=== PATIENT | female | born 1940 | race Caucasian/White ===

== ENCOUNTER 2019-10-10 11:11 | Emergency (ER) | payer MEDICARE, MEDICAID ==
[~2019-10-10] VITALS: Ht 167.6 cm; Wt 98.0 kg
[~2019-10-10 11:11] MED LIST: GABA300C PO; HYDR-3282 MT; PIOG30TA10 PO; SERT100T MT; SEVE800T8 MT; SIMV20TA2 PO; TRAZ-251 PO
[2019-10-10] MEDS ORDERED: HYDROCODONE/ACETAMINOPHEN 10/325MG TABLET PO ONE (15:45)
[2019-10-10 17:44] VITALS: BP 124/82
[2019-10-10 17:54] LABS: CHLORIDE 103 mEq/L (98-107)
[2019-10-10] MEDS ORDERED: PREDNISONE 20MG TABLET PO ONE (18:15)
[2019-10-10] MEDS ORDERED: KETOROLAC 30MG/ML VIAL IM ONE (18:15)
[2019-10-10] MEDS ORDERED: KETOROLAC 15MG/ML VIAL IV ONE (18:15)
== END 2019-10-10 19:28 | disposition home or self-care (01) ==
LOC: ER 11:11
DX: M19.022 Primary osteoarthritis, left elbow (principal); M17.12 Unilateral primary osteoarthritis, left knee; M79.652 Pain in left thigh; I10 Essential (primary) hypertension
CPT/HCPCS: 36415; 71045; 73070; 73552; 80053; 93005; 96372; 99284; J1885; J7512

== ENCOUNTER 2020-02-27 10:46 | Inpatient (IN) | payer MEDICARE, MEDICAID ==
[~2020-02-27] VITALS: Ht 167.6 cm; Wt 99.8 kg
[2020-02-27] MEDS ORDERED: VANCOMYCIN 1 G PREMIX 200 ML IV ONE (11:30)
[2020-02-27 11:53] LABS: BG BASE EXCESS -3.9 mmol/L (-2.0-2.0); BG CARBOXYHEMOGLOBIN 0.3 % (0.5-1.5); BG DEOXYHEMOGLOBIN 1.6 % (0.0-5.0); BG FRACTION INSPIRED OXYGEN 36; BG HCO3 ACT 21.8 mmol/L (22.0-26.0); BG METHEMOGLOBIN 0.4 % (0.0-1.5); BG OXYGEN SATURATION 98.4 % (92.0-98.5); BG OXYHEMOGLOBIN 97.7 % (94.0-97.0); BG PCO2 42.6 mmHg (35.0-45.0); BG PH 7.327 (7.350-7.450); BG PO2 196.6 mmHg (75.0-100.0); BG SAMPLE SITE RIGHT BRACHIAL; BG TOTAL HEMOGLOBIN 8.4 g/dL (12.0-18.0); BG VENT MODE NASAL CANNULA
[2020-02-27 12:03] LABS: BASOPHILS % 0.6 % (0.0-2.0); EOSINOPHILS % 2.3 % (0.0-5.0); HEMATOCRIT. 36.7 % (36.0-48.0); HEMOGLOBIN. 12.3 g/dL (12.0-16.0); MEAN CORPUSCULAR HEMOGLOBIN 31.7 pg (28.0-32.0); MEAN CORPUSCULAR VOLUME 95.2 fL (81.0-99.0); MEAN PLATELET VOLUME 7.7 fl (7.4-10.4); MONOCYTES % 8.7 % (2.0-8.0); NEUTROPHILS % 66.4 % (40.0-76.0); PLATELET 207 x1000/uL (130-400); RED BLOOD CELL COUNT 3.86 mill/uL (4.2-5.4); RED CELL DISTRIBUTION WIDTH 14.9 % (11.6-14.6)
[2020-02-27 12:08] LABS: D-DIMER 1.59 mg/L FEU (<0.50); INR 0.9; PROTHROMBIN TIME 10.3 sec (9.6-11.0)
[2020-02-27 12:10] LABS: CHLORIDE 102 mEq/L (98-107)
[2020-02-27 12:26] LABS: CLARITY URINE CLOUDY (CLEAR); COLOR URINE DARK YELLOW (YELLOW); KETONES URINE TRACE (NEGATIVE); LEUKOCYTE ESTERASE URINE 3+ (NEGATIVE); NITRITE URINE NEGATIVE (NEGATIVE); OCCULT BLOOD URINE 1+ (NEGATIVE); PH URINE 5.5 (4.5-8.0); PROTEIN URINE 2+ (NEGATIVE); SPECIFIC GRAVITY URINE 1.022 (1.005-1.030)
[2020-02-27] MEDS ORDERED: FUROSEMIDE 20MG/2ML VIAL IVP ONE (12:45)
[2020-02-27] MEDS ORDERED: ENOXAPARIN 40MG/0.4ML SYR SUBCUT SCH (15:15)
[2020-02-27] MEDS ORDERED: HYDROCODONE/ACETAMINOPHEN 5/325MG TABLET PO PRN (15:15)
[2020-02-27] MEDS ORDERED: IPRATROPIUM/ALBUTEROL 0.5-3(2.5)MG/3ML NEB HHN PRN (15:15)
[2020-02-27] MEDS ORDERED: LEVOFLOXACIN 250MG PREMIX 50 ML IV NR (15:15)
[2020-02-27] MEDS ORDERED: ACETAMINOPHEN 325MG TABLET PO PRN (15:15)
[2020-02-27] MEDS ORDERED: VANCOMYCIN 1 G PREMIX 200 ML IV SCH (15:15)
[2020-02-27] MEDS ORDERED: VANCOMYCIN 500 MG PREMIX 100 ML IV SCH (17:00)
[2020-02-27] MEDS: LORAZEPAM 2MG/ML CPJ IV PRN (18:25)
[2020-02-27 23:00] VITALS: BP 140/68
[2020-02-27] MEDS: ENOXAPARIN 30MG/0.3ML SYR SUBCUT SCH (23:08)
[2020-02-28] VITALS: BP_SYST 119; BP_SYST 140; BP_DIAS 68; BP_DIAS 70
[2020-02-28] MEDS: LORAZEPAM 2MG/ML CPJ IV PRN (00:42)
[2020-02-28] MEDS ORDERED: DEXTROSE 50% WATER 50ML SYRINGE IV PRN ×2 (01:00)
[2020-02-28 04:00] VITALS: BP 163/70
[2020-02-28] MEDS: BLOOD SUGAR DIAGNOSTIC STRIP TEST SCH ×4 (05:46→21:51)
[2020-02-28] MEDS: INSULIN LISPRO 100 UNITS/ML SUBCUT SCH ×4 (05:46→21:00)
[2020-02-28 07:45] LABS: CHLORIDE 102 mEq/L (98-107)
[2020-02-28 07:56] LABS: LDL CHOLESTEROL 63 mg/dL (5-100)
[2020-02-28 07:57] LABS: HDL CHOLESTEROL 52 mg/dL (40-59); T4 FREE 0.86 ng/dL (0.76-1.46)
[2020-02-28 08:00] VITALS: BP 149/83
[2020-02-28] MEDS: ENOXAPARIN 30MG/0.3ML SYR SUBCUT SCH ×2 (09:00→21:50)
[2020-02-28 10:19] LABS: BASOPHILS % 0.2 % (0.0-2.0); EOSINOPHILS % 1.8 % (0.0-5.0); HEMOGLOBIN. 12.5 g/dL (12.0-16.0); LYMPHOCYTES % 14.8 % (20.0-50.0); MEAN CORPUSCULAR HEMOGLOBIN 31.6 pg (28.0-32.0); MEAN CORPUSCULAR VOLUME 95.7 fL (81.0-99.0); MEAN PLATELET VOLUME 7.5 fl (7.4-10.4); MONOCYTES % 7.2 % (2.0-8.0); PLATELET 184 x1000/uL (130-400); RED BLOOD CELL COUNT 3.97 mill/uL (4.2-5.4); RED CELL DISTRIBUTION WIDTH 14.3 % (11.6-14.6)
[2020-02-28] MEDS ORDERED: MEDICATION NOT ON FORMULARY EA (Hydrocodone Bit/Acetaminophen (Hydrocodon-Acetaminoph 7. MT PRN (14:15)
[2020-02-28] MEDS: VANCOMYCIN 1 G PREMIX 200 ML IV SCH (14:58)
[2020-02-28] MEDS: GABAPENTIN 300MG CAPSULE PO SCH ×2 (14:58→21:50)
[2020-02-28] MEDS ORDERED: LEVOFLOXACIN 500MG PREMIX 100 ML IV SCH (16:00)
[2020-02-28 20:00] VITALS: BP 167/76
[2020-02-28] MEDS ORDERED: ATORVASTATIN CALCIUM 10MG TABLET PO SCH (21:00)
[2020-02-28] MEDS ORDERED: TRAZODONE HCL 50MG TABLET PO SCH (21:00)
[2020-02-29] VITALS: BP 141/62
[2020-02-29 04:00] VITALS: BP 134/61
[2020-02-29] MEDS: BLOOD SUGAR DIAGNOSTIC STRIP TEST SCH ×2 (06:34→12:05)
[2020-02-29] MEDS: INSULIN LISPRO 100 UNITS/ML SUBCUT SCH ×2 (06:34→12:05)
[2020-02-29] MEDS: VANCOMYCIN 1 G PREMIX 200 ML IV SCH (06:38)
[2020-02-29] MEDS: GABAPENTIN 300MG CAPSULE PO SCH (06:39)
[2020-02-29] MEDS ORDERED: PIOGLITAZONE 15MG TABLET PO SCH (06:45)
[2020-02-29] MEDS ORDERED: SEVELAMER CARBONATE 800 MG TABLET PO SCH (09:00)
[2020-02-29] MEDS ORDERED: SERTRALINE HCL 50MG TABLET PO SCH (09:00)
[2020-02-29] MEDS: ENOXAPARIN 30MG/0.3ML SYR SUBCUT SCH (09:05)
[2020-02-29 12:00] VITALS: BP 133/56
[2020-02-29] MEDS ORDERED: DOXY100C2 MT (14:00)
[2020-02-29 14:47] VITALS: BP 138/88
[2020-02-29] MEDS ORDERED: LEVOFLOXACIN 500MG TABLET PO SCH (16:00)
== END 2020-02-29 15:30 | disposition home health service (06) | DRG 602 ==
LOC: ER 10:46 → EDBEDREQ 12:48 → EDBEDREQTM 12:48 → EDBEDREQSVC 12:53 → ENRESERV 21:31 → 5WST 22:08
PROVIDERS: ADMIT Internal Medicine; ATTEND Internal Medicine
DX: L03.115 Cellulitis of right lower limb (principal); J18.9 Pneumonia, unspecified organism; I13.0 Hypertensive heart and chronic kidney disease with heart failure and stage 1 through stage 4 chronic kidney disease, or unspecified chronic kidney disease; E44.0 Moderate protein-calorie malnutrition; N39.0 Urinary tract infection, site not specified; L03.116 Cellulitis of left lower limb; E11.22 Type 2 diabetes mellitus with diabetic chronic kidney disease; E66.9 Obesity, unspecified; E78.5 Hyperlipidemia, unspecified; N18.9 Chronic kidney disease, unspecified; Z96.659 Presence of unspecified artificial knee joint; M19.90 Unspecified osteoarthritis, unspecified site; E78.00 Pure hypercholesterolemia, unspecified; F32.9 Major depressive disorder, single episode, unspecified; I50.9 Heart failure, unspecified; Z90.710 Acquired absence of both cervix and uterus; Z88.1 Allergy status to other antibiotic agents; Z88.5 Allergy status to narcotic agent; Z79.891 Long term (current) use of opiate analgesic; Z90.5 Acquired absence of kidney; Z79.899 Other long term (current) drug therapy; Z68.35 Body mass index [BMI] 35.0-35.9, adult
CPT/HCPCS: 36415; 36600; 71045; 78580; 80053; 80061; 81003; 82375; 82805; 82962; 83036; 83605; 83880; 84145; 84439; 84443; 84484; 85025; 85379; 93005; 93306; 93970; 99291; J1650; J1940; J1956; J2060; J3370

== ENCOUNTER 2021-10-03 18:45 | Inpatient (IN) | payer MEDICARE, MEDICAID ==
[~2021-10-03] VITALS: Ht 167.6 cm; Wt 90.3 kg
[~2021-10-03 18:45] MED LIST changes: +DOXY100C5 MT; -HYDR-3282 MT; +HYDR-4348 MT
[2021-10-03 22:04] LABS: HEMATOCRIT. 40.9 % (36.0-48.0); HEMOGLOBIN. 13.3 g/dL (12.0-16.0); MEAN CORPUSCULAR HEMOGLOBIN 31.6 pg (28.0-32.0); MEAN CORPUSCULAR VOLUME 97.3 fL (81.0-99.0); PLATELET 216 x1000/uL (130-400); RED CELL DISTRIBUTION WIDTH 14.6 % (11.6-14.6)
[2021-10-03 22:05] LABS: CLARITY URINE CLOUDY (CLEAR); COLOR URINE DARK YELLOW (YELLOW); KETONES URINE TRACE (NEGATIVE); LEUKOCYTE ESTERASE URINE 1+ (NEGATIVE); NITRITE URINE NEGATIVE (NEGATIVE); OCCULT BLOOD URINE 2+ (NEGATIVE); PROTEIN URINE 2+ (NEGATIVE); SPECIFIC GRAVITY URINE 1.024 (1.005-1.030)
[2021-10-03 22:09] LABS: CHLORIDE 103 mEq/L (98-107)
[2021-10-03] MEDS ORDERED: PIPERACILLIN/TAZOBACTAM 3.375GM/50ML PREMIX IV ONE (22:45)
[2021-10-03] MEDS: HYDROCODONE/ACETAMINOPHEN 5/325MG TABLET PO NR ×2 (22:48→23:02)
[2021-10-03] MEDS ORDERED: PIPERACILLIN/TAZ 3.375G PREMIX 50 ML IV NR (23:00)
[2021-10-03] MEDS ORDERED: KETOROLAC 30MG/ML VIAL IV ONE (23:00)
[2021-10-03 23:28] LABS: PLATELET ESTIMATE NORMAL
[2021-10-03] MEDS ORDERED: CYCLOBENZAPRINE 10MG TABLET PO ONE (23:30)
[2021-10-04] MEDS ORDERED: ACETAMINOPHEN 325MG TABLET PO PRN (10:30)
[2021-10-04] MEDS ORDERED: ONDANSETRON HCL 4MG/2ML INJ IV PRN (10:30)
[2021-10-04 11:55] VITALS: BP 160/77
[2021-10-04] MEDS ORDERED: LEVOFLOXACIN 500MG PREMIX 100 ML IV SCH (12:00)
[2021-10-04 12:59] VITALS: BP 165/95
[2021-10-04 16:01] VITALS: BP 158/79
[2021-10-04] MEDS ORDERED: PNEUMOCOCCAL 23-VAL P-SAC VAC 0.5 ML IM ONE (17:00)
[2021-10-04 18:00] VITALS: BP 157/61
[2021-10-04 20:00] VITALS: BP 158/74
[2021-10-04] MEDS ORDERED: NA PHOS,M-B/NA PHOS,DI-BA ENEMA 118ML PR NR (20:15)
[2021-10-04] MEDS ORDERED: NALOXONE HCL 0.4MG/ML VIAL IV PRN (20:30)
[2021-10-04] MEDS: BUSPIRONE HCL 5MG TABLET PO SCH (21:00)
[2021-10-04] MEDS: HYDROCODONE/ACETAMINOPHEN 5/325MG TABLET PO PRN (22:17)
[2021-10-04] MEDS: ENOXAPARIN 40MG/0.4ML SYR SUBCUT SCH (22:19)
[2021-10-05] VITALS (7 sets, daily range): BP systolic 134–162; BP diastolic 62–76
[2021-10-05 08:13] LABS: BASOPHILS % 0.1 % (0.0-2.0); EOSINOPHILS % 0.1 % (0.0-5.0); HEMOGLOBIN. 12.6 g/dL (12.0-16.0); LYMPHOCYTES % 7.4 % (20.0-50.0); MEAN CORPUSCULAR HEMOGLOBIN 31.3 pg (28.0-32.0); MEAN CORPUSCULAR VOLUME 97.1 fL (81.0-99.0); MEAN PLATELET VOLUME 8.1 fl (7.4-10.4); MONOCYTES % 6.1 % (2.0-8.0); NEUTROPHILS % 86.3 % (40.0-76.0); PLATELET 196 x1000/uL (130-400); RED BLOOD CELL COUNT 4.02 mill/uL (4.2-5.4); RED CELL DISTRIBUTION WIDTH 14.7 % (11.6-14.6)
[2021-10-05] MEDS: BUSPIRONE HCL 5MG TABLET PO SCH ×2 (09:57→20:44)
[2021-10-05] MEDS: HYDROCODONE/ACETAMINOPHEN 5/325MG TABLET PO PRN (09:57)
[2021-10-05] MEDS: LEVOFLOXACIN 250MG PREMIX 50 ML IV SCH (13:01)
[2021-10-05] MEDS ORDERED: AMLO5TAB4 PO (16:08)
[2021-10-05] MEDS: ENOXAPARIN 40MG/0.4ML SYR SUBCUT SCH (20:43)
[2021-10-05] MEDS: HYDROCODONE/ACETAMINOPHEN 10/325MG TABLET PO PRN (20:44)
[2021-10-06] VITALS (7 sets, daily range): BP systolic 123–151; BP diastolic 51–69
[2021-10-06] MEDS: ALPRAZOLAM 0.5 MG TABLET PO PRN ×2 (01:39→18:10)
[2021-10-06] MEDS: BUSPIRONE HCL 5MG TABLET PO SCH ×2 (09:31→20:21)
[2021-10-06] MEDS: LEVOFLOXACIN 250MG PREMIX 50 ML IV SCH (13:39)
[2021-10-06] MEDS ORDERED: LACTULOSE 20G/30ML UDC PO PRN (15:15)
[2021-10-06] MEDS ORDERED: BISACODYL 5MG TABLET PO PRN (15:15)
[2021-10-06] MEDS: DOCUSATE SODIUM 100MG CAPSULE PO SCH (18:10)
[2021-10-06] MEDS: ENOXAPARIN 40MG/0.4ML SYR SUBCUT SCH (20:22)
[2021-10-06] MEDS: HYDROCODONE/ACETAMINOPHEN 10/325MG TABLET PO PRN (21:21)
[2021-10-07] VITALS: BP 131/70
[2021-10-07 04:00] VITALS: BP 125/80
[2021-10-07] MEDS: HYDROCODONE/ACETAMINOPHEN 10/325MG TABLET PO PRN ×2 (07:01→23:24)
[2021-10-07 08:00] VITALS: BP 149/64
[2021-10-07] MEDS: DOCUSATE SODIUM 100MG CAPSULE PO SCH ×2 (09:23→17:25)
[2021-10-07] MEDS: BUSPIRONE HCL 5MG TABLET PO SCH ×2 (09:23→20:39)
[2021-10-07] MEDS: LEVOFLOXACIN 250MG TABLET PO SCH (11:39)
[2021-10-07 12:00] VITALS: BP 147/68
[2021-10-07 16:00] VITALS: BP 127/82
[2021-10-07 16:31] LABS: BASOPHILS % 0.1 % (0.0-2.0); EOSINOPHILS % 0.8 % (0.0-5.0); HEMATOCRIT. 38.4 % (36.0-48.0); HEMOGLOBIN. 12.9 g/dL (12.0-16.0); LYMPHOCYTES % 7.5 % (20.0-50.0); MEAN CORPUSCULAR HEMOGLOBIN 32.5 pg (28.0-32.0); MEAN CORPUSCULAR VOLUME 96.5 fL (81.0-99.0); MEAN PLATELET VOLUME 7.6 fl (7.4-10.4); MONOCYTES % 6.9 % (2.0-8.0); NEUTROPHILS % 84.7 % (40.0-76.0); PLATELET 225 x1000/uL (130-400); RED BLOOD CELL COUNT 3.98 mill/uL (4.2-5.4); RED CELL DISTRIBUTION WIDTH 14.2 % (11.6-14.6)
[2021-10-07 16:39] LABS: CHLORIDE 101 mEq/L (98-107)
[2021-10-07] MEDS: HYDROCODONE/ACETAMINOPHEN 5/325MG TABLET PO PRN (17:25)
[2021-10-07 20:00] VITALS: BP 133/94
[2021-10-07] MEDS ORDERED: NA PHOS,M-B/NA PHOS,DI-BA ENEMA 118ML PR PRN (20:30)
[2021-10-07] MEDS: LACTULOSE 20G/30ML UDC PO SCH (20:39)
[2021-10-07] MEDS: ENOXAPARIN 40MG/0.4ML SYR SUBCUT SCH (20:40)
[2021-10-08] VITALS: BP 110/51
[2021-10-08 04:00] VITALS: BP 130/53
[2021-10-08 08:00] VITALS: BP 163/62
[2021-10-08] MEDS: BUSPIRONE HCL 5MG TABLET PO SCH ×2 (08:37→20:14)
[2021-10-08] MEDS: DOCUSATE SODIUM 100MG CAPSULE PO SCH ×2 (08:37→17:27)
[2021-10-08] MEDS: LEVOFLOXACIN 250MG TABLET PO SCH (10:54)
[2021-10-08 12:00] VITALS: BP 137/57
[2021-10-08 16:00] VITALS: BP 138/61
[2021-10-08 20:00] VITALS: BP 154/73
[2021-10-08] MEDS: ENOXAPARIN 30MG/0.3ML SYR SUBCUT SCH (20:14)
[2021-10-08] MEDS: HYDROCODONE/ACETAMINOPHEN 5/325MG TABLET PO PRN (20:15)
[2021-10-08] MEDS: LACTULOSE 20G/30ML UDC PO SCH (20:18)
[2021-10-09] VITALS (7 sets, daily range): BP systolic 122–147; BP diastolic 54–72
[2021-10-09] MEDS: HYDROCODONE/ACETAMINOPHEN 5/325MG TABLET PO PRN (02:53)
[2021-10-09] MEDS: SODIUM CHLORIDE 0.45% 1,000 ML IV SCH (06:25)
[2021-10-09] MEDS: DOCUSATE SODIUM 100MG CAPSULE PO SCH ×2 (09:36→17:00)
[2021-10-09] MEDS: BUSPIRONE HCL 5MG TABLET PO SCH ×2 (09:37→20:52)
[2021-10-09 14:04] LABS: HEMATOCRIT. 39.2 % (36.0-48.0); HEMOGLOBIN. 12.5 g/dL (12.0-16.0); MEAN CORPUSCULAR HEMOGLOBIN 30.7 pg (28.0-32.0); MEAN CORPUSCULAR VOLUME 96.2 fL (81.0-99.0); MEAN PLATELET VOLUME 7.7 fl (7.4-10.4); PLATELET 254 x1000/uL (130-400); RED BLOOD CELL COUNT 4.07 mill/uL (4.2-5.4); RED CELL DISTRIBUTION WIDTH 14.4 % (11.6-14.6)
[2021-10-09 14:18] LABS: CHLORIDE 100 mEq/L (98-107)
[2021-10-09 14:28] LABS: CREATINE KINASE 56 IU/L (26-192)
[2021-10-09 14:30] LABS: CREATINE KINASE MB FRACTION 4.5 ng/mL (0.5-3.6)
[2021-10-09] MEDS: HYDROCODONE/ACETAMINOPHEN 10/325MG TABLET PO PRN ×2 (16:18→23:14)
[2021-10-09 16:41] LABS: PLATELET ESTIMATE NORMAL
[2021-10-09 17:05] LABS: BG BASE EXCESS -5.5 mmol/L (-2.0-2.0); BG CARBOXYHEMOGLOBIN 1.3 % (0.5-1.5); BG DEOXYHEMOGLOBIN 2.5 % (0.0-5.0); BG FRACTION INSPIRED OXYGEN 24; BG HCO3 ACT 20.3 mmol/L (22.0-26.0); BG METHEMOGLOBIN 0.3 % (0.0-1.5); BG OXYGEN SATURATION 97.5 % (92.0-98.5); BG OXYHEMOGLOBIN 95.9 % (94.0-97.0); BG PCO2 40.9 mmHg (35.0-45.0); BG PH 7.314 (7.350-7.450); BG PO2 104.9 mmHg (75.0-100.0); BG SAMPLE SITE RIGHT RADIAL; BG TOTAL HEMOGLOBIN 13.2 g/dL (12.0-18.0); BG VENT MODE NASAL CANNULA
[2021-10-09] MEDS: PIPERACILLIN/TAZOBACTAM 3.375 G in DEXTROSE 5% WATER 50 ML IV SCH ×2 (17:18→20:52)
[2021-10-09 17:52] LABS: T4 FREE 0.83 ng/dL (0.76-1.46)
[2021-10-09] MEDS: FAMOTIDINE 20MG TABLET PO SCH (20:52)
[2021-10-09] MEDS: ENOXAPARIN 30MG/0.3ML SYR SUBCUT SCH (20:53)
[2021-10-09] MEDS: LACTULOSE 20G/30ML UDC PO SCH (20:53)
[2021-10-10] VITALS: BP 149/60
[2021-10-10] MEDS: SODIUM CHLORIDE 0.45% 1,000 ML IV SCH ×2 (00:50→12:12)
[2021-10-10] MEDS: LORAZEPAM 2MG/ML CPJ IV PRN (00:50)
[2021-10-10 04:00] VITALS: BP 154/67
[2021-10-10 07:28] LABS: CLARITY URINE TURBID (CLEAR); KETONES URINE TRACE (NEGATIVE); LEUKOCYTE ESTERASE URINE 3+ (NEGATIVE); NITRITE URINE NEGATIVE (NEGATIVE); OCCULT BLOOD URINE 3+ (NEGATIVE); PH URINE 5.5 (4.5-8.0); PROTEIN URINE 2+ (NEGATIVE); SPECIFIC GRAVITY URINE 1.011 (1.005-1.030); UROBILINOGEN URINE 0.2 E.U./dL (0.2-1.0)
[2021-10-10 07:29] LABS: COLOR URINE BLOODY (YELLOW)
[2021-10-10] MEDS: HYDROCODONE/ACETAMINOPHEN 10/325MG TABLET PO PRN ×2 (08:06→23:41)
[2021-10-10 08:20] VITALS: BP 148/59
[2021-10-10] MEDS: DOCUSATE SODIUM 100MG CAPSULE PO SCH ×2 (09:35→17:00)
[2021-10-10] MEDS: PIPERACILLIN/TAZOBACTAM 3.375 G in DEXTROSE 5% WATER 50 ML IV SCH ×2 (09:36→21:11)
[2021-10-10] MEDS ORDERED: LEVOFLOXACIN 250MG TABLET PO SCH (11:00)
[2021-10-10 11:01] LABS: HEMOGLOBIN. 12.8 g/dL (12.0-16.0); MEAN CORPUSCULAR HEMOGLOBIN 30.6 pg (28.0-32.0); MEAN PLATELET VOLUME 7.1 fl (7.4-10.4); PLATELET 245 x1000/uL (130-400); RED BLOOD CELL COUNT 4.16 mill/uL (4.2-5.4); RED CELL DISTRIBUTION WIDTH 14.1 % (11.6-14.6)
[2021-10-10 12:04] VITALS: BP 149/61
[2021-10-10 13:25] LABS: BG BASE EXCESS -3.7 mmol/L (-2.0-2.0); BG CARBOXYHEMOGLOBIN 1.4 % (0.5-1.5); BG FRACTION INSPIRED OXYGEN 28; BG HCO3 ACT 24.7 mmol/L (22.0-26.0); BG METHEMOGLOBIN 0.3 % (0.0-1.5); BG OXYHEMOGLOBIN 96.3 % (94.0-97.0); BG PH 7.226 (7.350-7.450); BG PO2 124.5 mmHg (75.0-100.0); BG SAMPLE SITE RIGHT RADIAL; BG TOTAL HEMOGLOBIN 12.7 g/dL (12.0-18.0); BG VENT MODE NASAL CANNULA
[2021-10-10 14:36] LABS: NUCLEATED RED BLOOD CELLS 1 /100 WBC; PLATELET ESTIMATE NORMAL
[2021-10-10 15:55] LABS: HEMATOCRIT. 42.6 % (36.0-48.0); HEMOGLOBIN. 13.3 g/dL (12.0-16.0); MEAN CORPUSCULAR HEMOGLOBIN 30.3 pg (28.0-32.0); MEAN CORPUSCULAR VOLUME 96.9 fL (81.0-99.0); MEAN PLATELET VOLUME 7.4 fl (7.4-10.4); PLATELET 262 x1000/uL (130-400); RED CELL DISTRIBUTION WIDTH 14.4 % (11.6-14.6)
[2021-10-10 16:00] VITALS: BP 131/71
[2021-10-10 16:20] LABS: CREATINE KINASE 48 IU/L (26-192); CREATINE KINASE MB FRACTION 4.1 ng/mL (0.5-3.6)
[2021-10-10 16:31] LABS: PLATELET ESTIMATE NORMAL
[2021-10-10 16:39] LABS: INR 1.3; PROTHROMBIN TIME 14.1 sec (9.6-11.0)
[2021-10-10 17:27] LABS: BG BASE EXCESS -4.2 mmol/L (-2.0-2.0); BG CARBOXYHEMOGLOBIN 1.4 % (0.5-1.5); BG HCO3 ACT 23.5 mmol/L (22.0-26.0); BG METHEMOGLOBIN 0.3 % (0.0-1.5); BG OXYGEN SATURATION 95.9 % (92.0-98.5); BG OXYHEMOGLOBIN 94.3 % (94.0-97.0); BG PCO2 54.3 mmHg (35.0-45.0); BG PH 7.254 (7.350-7.450); BG PO2 89.3 mmHg (75.0-100.0); BG SAMPLE SITE RIGHT RADIAL; BG TOTAL HEMOGLOBIN 13.2 g/dL (12.0-18.0); BG VENT MODE NASAL CANNULA
[2021-10-10 20:00] VITALS: BP 164/68
[2021-10-10] MEDS: LACTULOSE 20G/30ML UDC PO SCH (21:11)
[2021-10-10] MEDS: ENOXAPARIN 30MG/0.3ML SYR SUBCUT SCH (21:12)
[2021-10-10] MEDS: FAMOTIDINE 20MG TABLET PO SCH (21:12)
[2021-10-11] VITALS: BP 138/56
[2021-10-11] MEDS: SODIUM CHLORIDE 0.45% 1,000 ML IV SCH ×2 (03:07→15:09)
[2021-10-11 04:00] VITALS: BP 125/56
[2021-10-11 08:00] VITALS: BP 147/52
[2021-10-11] MEDS: PIPERACILLIN/TAZOBACTAM 3.375 G in DEXTROSE 5% WATER 50 ML IV SCH ×2 (09:18→21:48)
[2021-10-11] MEDS: DOCUSATE SODIUM 100MG CAPSULE PO SCH ×2 (09:18→16:27)
[2021-10-11 10:06] LABS: BG BASE EXCESS -2.7 mmol/L (-2.0-2.0); BG CARBOXYHEMOGLOBIN 1.2 % (0.5-1.5); BG DEOXYHEMOGLOBIN 1.8 % (0.0-5.0); BG FRACTION INSPIRED OXYGEN 36; BG HCO3 ACT 24.1 mmol/L (22.0-26.0); BG METHEMOGLOBIN 0.3 % (0.0-1.5); BG OXYGEN SATURATION 98.2 % (92.0-98.5); BG OXYHEMOGLOBIN 96.7 % (94.0-97.0); BG PCO2 50.4 mmHg (35.0-45.0); BG PH 7.298 (7.350-7.450); BG PO2 132.2 mmHg (75.0-100.0); BG SAMPLE SITE RIGHT RADIAL; BG VENT MODE NASAL CANNULA
[2021-10-11 10:44] LABS: HEMATOCRIT. 36.2 % (36.0-48.0); HEMOGLOBIN. 11.7 g/dL (12.0-16.0); MEAN CORPUSCULAR VOLUME 95.7 fL (81.0-99.0); MEAN PLATELET VOLUME 7.2 fl (7.4-10.4); PLATELET 261 x1000/uL (130-400); RED BLOOD CELL COUNT 3.78 mill/uL (4.2-5.4); RED CELL DISTRIBUTION WIDTH 14.4 % (11.6-14.6)
[2021-10-11 11:52] LABS: CHLORIDE 109 mEq/L (98-107)
[2021-10-11 12:00] VITALS: BP 111/63
[2021-10-11 13:38] LABS: PLATELET ESTIMATE NORMAL
[2021-10-11 16:00] VITALS: BP 149/96
[2021-10-11 20:00] VITALS: BP 157/66
[2021-10-11] MEDS: FAMOTIDINE 20MG TABLET PO SCH (21:49)
[2021-10-11] MEDS: ENOXAPARIN 30MG/0.3ML SYR SUBCUT SCH (21:49)
[2021-10-11] MEDS: LACTULOSE 20G/30ML UDC PO SCH ×2 (21:49→22:00)
[2021-10-11] MEDS: HYDROCODONE/ACETAMINOPHEN 5/325MG TABLET PO PRN (23:43)
[2021-10-12] VITALS: BP 149/57
[2021-10-12 04:00] VITALS: BP 126/83
[2021-10-12] MEDS: SODIUM CHLORIDE 0.45% 1,000 ML IV SCH ×2 (05:23→16:33)
[2021-10-12 07:18] LABS: HEMATOCRIT. 33.1 % (36.0-48.0); HEMOGLOBIN. 10.6 g/dL (12.0-16.0); MEAN CORPUSCULAR VOLUME 96.8 fL (81.0-99.0); MEAN PLATELET VOLUME 7.3 fl (7.4-10.4); PLATELET 237 x1000/uL (130-400); RED BLOOD CELL COUNT 3.42 mill/uL (4.2-5.4); RED CELL DISTRIBUTION WIDTH 14.2 % (11.6-14.6)
[2021-10-12 08:00] VITALS: BP 153/59
[2021-10-12] MEDS: DOCUSATE SODIUM 100MG CAPSULE PO SCH ×2 (08:38→16:23)
[2021-10-12] MEDS: PIPERACILLIN/TAZOBACTAM 3.375 G in DEXTROSE 5% WATER 50 ML IV SCH ×2 (08:39→20:23)
[2021-10-12 09:01] LABS: PLATELET ESTIMATE NORMAL
[2021-10-12 11:26] LABS: BG BASE EXCESS -0.5 mmol/L (-2.0-2.0); BG CARBOXYHEMOGLOBIN 0.5 % (0.5-1.5); BG DEOXYHEMOGLOBIN 1.4 % (0.0-5.0); BG HCO3 ACT 26.8 mmol/L (22.0-26.0); BG METHEMOGLOBIN 0.3 % (0.0-1.5); BG OXYGEN SATURATION 98.6 % (92.0-98.5); BG OXYHEMOGLOBIN 97.8 % (94.0-97.0); BG PCO2 57.2 mmHg (35.0-45.0); BG PH 7.289 (7.350-7.450); BG PO2 157.9 mmHg (75.0-100.0); BG SAMPLE SITE RIGHT RADIAL; BG TOTAL HEMOGLOBIN 11.2 g/dL (12.0-18.0); BG VENT MODE NASAL CANNULA
[2021-10-12 12:00] VITALS: BP 138/64
[2021-10-12 16:00] VITALS: BP 129/76
[2021-10-12 20:00] VITALS: BP 148/61
[2021-10-12] MEDS: FAMOTIDINE 20MG TABLET PO SCH (20:23)
[2021-10-12] MEDS: ENOXAPARIN 30MG/0.3ML SYR SUBCUT SCH (20:23)
[2021-10-13] VITALS: BP 159/69
[2021-10-13] MEDS: LORAZEPAM 2MG/ML CPJ IV PRN ×2 (00:10→15:37)
[2021-10-13 04:00] VITALS: BP 128/53
[2021-10-13] MEDS: SODIUM CHLORIDE 0.45% 1,000 ML IV SCH ×2 (05:56→21:27)
[2021-10-13 07:49] LABS: HEMOGLOBIN. 11.6 g/dL (12.0-16.0); MEAN CORPUSCULAR HEMOGLOBIN 31.2 pg (28.0-32.0); MEAN CORPUSCULAR VOLUME 96.7 fL (81.0-99.0); MEAN PLATELET VOLUME 7.1 fl (7.4-10.4); PLATELET 240 x1000/uL (130-400); RED BLOOD CELL COUNT 3.73 mill/uL (4.2-5.4); RED CELL DISTRIBUTION WIDTH 14.9 % (11.6-14.6)
[2021-10-13 08:00] VITALS: BP 154/72
[2021-10-13] MEDS: DOCUSATE SODIUM 100MG CAPSULE PO SCH ×2 (08:25→16:34)
[2021-10-13] MEDS: PIPERACILLIN/TAZOBACTAM 3.375 G in DEXTROSE 5% WATER 50 ML IV SCH ×2 (08:25→21:27)
[2021-10-13 10:48] LABS: PLATELET ESTIMATE NORMAL
[2021-10-13 12:00] VITALS: BP_SYST 158; BP_SYST 164; BP_DIAS 79
[2021-10-13 16:00] VITALS: BP 171/71
[2021-10-13] MEDS: CLONIDINE 0.1MG TABLET PO PRN (17:59)
[2021-10-13 20:00] VITALS: BP 156/64
[2021-10-13] MEDS: LACTULOSE 20G/30ML UDC PO SCH (21:26)
[2021-10-13] MEDS: FAMOTIDINE 20MG TABLET PO SCH (21:26)
[2021-10-13] MEDS: ENOXAPARIN 30MG/0.3ML SYR SUBCUT SCH (21:27)
[2021-10-14] VITALS (8 sets, daily range): BP systolic 140–161; BP diastolic 63–93
[2021-10-14] MEDS: HYDROCODONE/ACETAMINOPHEN 5/325MG TABLET PO PRN ×2 (00:21→11:02)
[2021-10-14] MEDS: SODIUM CHLORIDE 0.45% 1,000 ML IV SCH (09:00)
[2021-10-14] MEDS: DOCUSATE SODIUM 100MG CAPSULE PO SCH ×2 (09:00→16:46)
[2021-10-14 11:03] LABS: HEMATOCRIT 33.3 % (36.0-48.0); HEMOGLOBIN 10.4 g/dL (12.0-16.0); MEAN CORPUSCULAR HEMOGLOBIN 30.6 pg (28.0-32.0); MEAN CORPUSCULAR VOLUME 97.9 fL (81.0-99.0); PLATELET 243 x1000/uL (130-400); RED CELL DISTRIBUTION WIDTH 14.1 % (11.6-14.6)
[2021-10-14 11:20] LABS: CHLORIDE 110 mEq/L (98-107)
[2021-10-14] MEDS: HYDROCODONE/ACETAMINOPHEN 10/325MG TABLET PO PRN (14:07)
[2021-10-14] MEDS: CLONIDINE 0.1MG TABLET PO PRN (16:46)
[2021-10-14] MEDS ORDERED: ENOXAPARIN 40MG/0.4ML SYR SUBCUT SCH (18:00)
[2021-10-14] MEDS: FAMOTIDINE 20MG TABLET PO SCH (21:55)
[2021-10-14] MEDS: LACTULOSE 20G/30ML UDC PO SCH (21:55)
[2021-10-15] VITALS: BP 152/59
[2021-10-15 04:00] VITALS: BP 165/62
[2021-10-15 08:00] VITALS: BP 173/64
[2021-10-15] MEDS: DOCUSATE SODIUM 100MG CAPSULE PO SCH (08:58)
[2021-10-15] MEDS: CLONIDINE 0.1MG TABLET PO PRN (09:37)
[2021-10-15 09:38] VITALS: BP 173/64
[2021-10-15] MEDS: HYDROCODONE/ACETAMINOPHEN 10/325MG TABLET PO PRN (09:38)
[2021-10-15] MEDS ORDERED: AMLODIPINE 5MG TABLET PO SCH (21:00)
== END 2021-10-15 14:15 | DRG 871 ==
LOC: ER 18:45 → MICUSO 10-04 01:32 → 5EST 10-04 11:09 → 6EST 10-06 02:43 → 6WST 10-10 08:11 → 7EST 10-10 22:52
PROVIDERS: ADMIT Internal Medicine; ATTEND Internal Medicine
PROC: 5A09357 Assistance with Respiratory Ventilation, Less than 24 Consecutive Hours, Continuous Positive Airway Pressure (ICD-10-PCS; 2021-10-10)
PROC: 02HV33Z Insertion of Infusion Device into Superior Vena Cava, Percutaneous Approach (ICD-10-PCS; principal; 2021-10-11)
PROC: B548ZZA Ultrasonography of Superior Vena Cava, Guidance (ICD-10-PCS; 2021-10-11)
DX: A41.89 Other specified sepsis (principal); E43 Unspecified severe protein-calorie malnutrition; U07.1 COVID-19; J12.82 Pneumonia due to coronavirus disease 2019; N12 Tubulo-interstitial nephritis, not specified as acute or chronic; N17.9 Acute kidney failure, unspecified; F32.A Depression, unspecified; G89.4 Chronic pain syndrome; F17.200 Nicotine dependence, unspecified, uncomplicated; I10 Essential (primary) hypertension; E66.01 Morbid (severe) obesity due to excess calories; M48.061 Spinal stenosis, lumbar region without neurogenic claudication; M19.90 Unspecified osteoarthritis, unspecified site; E86.0 Dehydration; K57.90 Diverticulosis of intestine, part unspecified, without perforation or abscess without bleeding; I27.20 Pulmonary hypertension, unspecified; Z79.84 Long term (current) use of oral hypoglycemic drugs; Z88.1 Allergy status to other antibiotic agents; Z88.5 Allergy status to narcotic agent; Z88.8 Allergy status to other drugs, medicaments and biological substances; Z79.899 Other long term (current) drug therapy; Z79.891 Long term (current) use of opiate analgesic; Z68.32 Body mass index [BMI] 32.0-32.9, adult
CPT/HCPCS: 36415; 36600; 71045; 71250; 72148; 74176; 76770; 76937; 80048; 80053; 80061; 80076; 81003; 82140; 82375; 82550; 82553; 82728; 82805; 83036; 83605; 83615; 84145; 84439; 84443; 84484; 85025; 85027; 86140; 87426; 90732; 93005; 93970; 94660; 97162; 97530; 99285; C1725; J1650; J1885; J1956; J2060; J2543; J7040; J7060; A4315

== ENCOUNTER 2022-07-16 16:19 | Emergency (ER) | payer MEDICARE, MEDICAID ==
[~2022-07-16] VITALS: Ht 162.6 cm; Wt 87.0 kg
[~2022-07-16 16:19] MED LIST changes: +AMLO5TAB4 PO; +SIMV-343 PO; -SIMV20TA2 PO
[2022-07-16] MEDS ORDERED: IBUPROFEN 400MG TABLET PO ONE (17:15)
[2022-07-16] MEDS ORDERED: AMLODIPINE 10MG TABLET PO ONE (17:15)
[2022-07-16] MEDS ORDERED: IBUP-2028 MT (19:03)
[2022-07-17] MEDS ORDERED: AMLODIPINE 10MG TABLET PO ONE (13:45)
[2022-07-17 14:00] VITALS: BP 166/79
== END 2022-07-17 15:52 ==
LOC: ER 16:19
DX: J98.11 Atelectasis (principal); N63.20 Unspecified lump in the left breast, unspecified quadrant; I10 Essential (primary) hypertension; Z85.3 Personal history of malignant neoplasm of breast; E11.9 Type 2 diabetes mellitus without complications; Z86.718 Personal history of other venous thrombosis and embolism; F32.A Depression, unspecified
CPT/HCPCS: 71045; 76641; 99285